=== PATIENT | female | born 1985 | race Hispanic/Latino ===

== ENCOUNTER 2017-04-14 19:55 | Emergency (ER) | payer SELFPAY ==
[2017-04-14] MEDS ORDERED: Dexamethasone 4 mg/ml Vial ONE (21:59)
== END 2017-04-14 22:08 | disposition home or self-care (01) ==
LOC: ERS 19:55
DX: J02.9 Acute pharyngitis, unspecified (principal); J45.909 Unspecified asthma, uncomplicated
CPT/HCPCS: 87081; 87430; 99283; J1100

== ENCOUNTER 2017-05-16 18:22 | Emergency (ER) | payer SELFPAY ==
[2017-05-16] MEDS ORDERED: Dexamethasone 10 MG/ML VIAL ONE (19:39)
== END 2017-05-16 20:03 | disposition home or self-care (01) ==
LOC: ERS 18:22
DX: J30.9 Allergic rhinitis, unspecified (principal)
CPT/HCPCS: 96372; J1100

== ENCOUNTER 2017-05-18 07:25 | Emergency (ER) | payer SELFPAY ==
[2017-05-18] MEDS ORDERED: Dexamethasone 4 MG TAB ONE (09:11)
== END 2017-05-18 09:22 | disposition home or self-care (01) ==
LOC: ERS 07:25
DX: J04.0 Acute laryngitis (principal); J20.9 Acute bronchitis, unspecified; J45.909 Unspecified asthma, uncomplicated; F43.10 Post-traumatic stress disorder, unspecified
CPT/HCPCS: 99282; J8540

== ENCOUNTER 2017-08-19 10:35 | Emergency (ER) | payer SELFPAY ==
[2017-08-19] MEDS ORDERED: Benzocaine 20% Spray 60 ML CAN ONE (11:45)
[2017-08-19] MEDS ORDERED: Lidocaine Viscous Sol 2% 15 ml UD Cup ONE (11:45)
[2017-08-19 12:21] LABS: BHCG - Serum Negative (NEGATIVE); Pregs Control Background? CLEAR/WHITE (CLR/WHITE); Pregs Control Bar Appear? YES (CONTROL BAR)
== END 2017-08-19 12:57 | disposition home or self-care (01) ==
LOC: ERS 10:35
DX: F41.9 Anxiety disorder, unspecified (principal); J45.909 Unspecified asthma, uncomplicated; F43.10 Post-traumatic stress disorder, unspecified; Z79.899 Other long term (current) drug therapy
CPT/HCPCS: 84703; 99283

== ENCOUNTER 2017-08-28 18:58 | Emergency (ER) | payer SELFPAY ==
[2017-08-28 19:44] LABS: BHCG - Serum Negative (NEGATIVE); Pregs Control Background? CLEAR/WHITE (CLR/WHITE); Pregs Control Bar Appear? YES (CONTROL BAR)
== END 2017-08-28 20:22 | disposition home or self-care (01) ==
LOC: ERS 18:58
DX: M62.838 Other muscle spasm (principal); J45.909 Unspecified asthma, uncomplicated; F43.10 Post-traumatic stress disorder, unspecified
CPT/HCPCS: 36415; 84703; 99283

== ENCOUNTER 2018-03-25 17:25 | Emergency (ER) | payer SELFPAY ==
[2018-03-25 18:35] LABS: #Basophils 0.1 thou/uL (0.0-0.2); #Eosinphils 0.3 thou/uL (0.0-0.7); #Lymphocytes 2.1 thou/uL (1.20-3.40); #Monocytes 0.5 thou/uL (0.11-0.59); #Neutrophils 4.9 thou/uL (1.40-6.50); %Basophils 0.7 % (0.0-1.0); %Eosinophils 3.5 % (0.0-10.0); %Lymphocytes 26.7 % (21.0-51.0); %Monocytes 6.6 % (0.0-10.0); %Neutrophils 62.5 % (42.0-75.0); Hemoglobin 14.2 g/dL (12.0-16.0); Mean Corpuscular HGB CONC 33.4 g/dL (32.0-36.0); Mean Corpuscular Hemoglobin 30.7 pg (27.0-31.0); Mean Corpuscular Volume 91.9 fL (78.0-98.0); Platelet Count 278 thou/uL (130-400); RBC Distribution Width 11.5 % (11.5-14.5); Red Blood Cell (RBC) Count 4.63 mill/uL (4.20-5.40); White Blood Cell (WBC) Count 7.8 thou/uL (4.8-10.8)
[2018-03-25 18:37] LABS: Pregnancy Test - Urine (BHCG) Negative (Negative); Pregu Control Background? CLEAR/WHITE (CLR/WHITE); Pregu Control Bar Appear? YES (CONTROL BAR); Specific Gravity 1.019 (1.002-1.036)
[2018-03-25 18:37] LABS: Bilirubin Negative (Negative); Blood, Urine Negative (Negative); Clarity CLOUDY (Clear); Glucose, Urine (Dipstick) Negative (Negative); Leukocyte Small (Negative); Nitrite Negative (Negative); Protein, Urine (Dipstick) Negative (Neg-Trace); Specific Gravity, Urine 1.019 (1.002-1.036); Urobilinogen 0.2 mg/dL (0.2-1.0)
[2018-03-25 18:40] LABS: Bacteria/HPF Rare-Few HPF (None Seen); Hyaline Casts/LPF 0-3 HYALINE CAST LPF (0-3 Hyaline); Pathc Cast-AUWi Flag 0.14 (0-2.49)
== END 2018-03-25 20:46 | disposition home or self-care (01) ==
LOC: ERS 17:25
DX: N93.9 Abnormal uterine and vaginal bleeding, unspecified (principal); J45.909 Unspecified asthma, uncomplicated; F43.10 Post-traumatic stress disorder, unspecified; E28.2 Polycystic ovarian syndrome
CPT/HCPCS: 36415; 81003; 81015; 81025; 84702; 85025; 99284

== ENCOUNTER 2018-05-10 13:41 | Emergency (ER) | payer SELFPAY ==
[2018-05-10] MEDS ORDERED: Ketorolac Tromethamine 30 MG/ML VIAL ONE (14:03)
== END 2018-05-10 14:09 | disposition home or self-care (01) ==
LOC: ERS 13:41
DX: K05.10 Chronic gingivitis, plaque induced (principal); F43.10 Post-traumatic stress disorder, unspecified; J45.909 Unspecified asthma, uncomplicated
CPT/HCPCS: 96372; J1885

== ENCOUNTER 2018-07-01 20:21 | Emergency (ER) | payer SELFPAY ==
[~2018-07-01 20:21] MED LIST: ISOVUE-370 76%-LOCM 1 ML ONE
[2018-07-01] MEDS ORDERED: Morphine 4 MG/ML VIAL ONE (21:49)
[2018-07-01] MEDS ORDERED: Famotidine/PF 20 mg/2ml Vial ONE (21:50)
[2018-07-01] MEDS ORDERED: Ondansetron PF 4 MG/2 ML Vial ONE (21:50)
[2018-07-01] MEDS ORDERED: diphenhydrAMINE 50 MG/ML VIAL ONE (21:50)
[2018-07-01] MEDS ORDERED: methylPREDNISolone Sod Succ/PF 125 MG/2 ML VIAL ONE (21:50)
[2018-07-01 22:07] LABS: #Basophils 0.1 thou/uL (0.0-0.2); #Eosinphils 0.5 thou/uL (0.0-0.7); #Lymphocytes 2.8 thou/uL (1.20-3.40); #Monocytes 0.5 thou/uL (0.11-0.59); #Neutrophils 4.3 thou/uL (1.40-6.50); %Basophils 0.9 % (0.0-1.0); %Eosinophils 6.5 % (0.0-10.0); %Lymphocytes 34.1 % (21.0-51.0); %Monocytes 6.3 % (0.0-10.0); %Neutrophils 52.3 % (42.0-75.0); Hemoglobin 13.5 g/dL (12.0-16.0); Mean Corpuscular HGB CONC 33.8 g/dL (32.0-36.0); Mean Corpuscular Hemoglobin 30.2 pg (27.0-31.0); Mean Corpuscular Volume 89.6 fL (78.0-98.0); Mean Platelet Volume 6.9 fL (7.4-10.4); Platelet Count 246 thou/uL (130-400); RBC Distribution Width 11.4 % (11.5-14.5); Red Blood Cell (RBC) Count 4.47 mill/uL (4.20-5.40); White Blood Cell (WBC) Count 8.1 thou/uL (4.8-10.8)
[2018-07-01 22:27] LABS: ALT (SGPT) 29 U/L (8-55); AST (SGOT) 21 U/L (5-34); Albumin 4.5 g/dL (3.5-5.0); Alkaline Phosphatase 77 U/L (40-150); Anion Gap 8 mmol/L (10-20); BUN (Urea Nitrogen) 17 mg/dL (7.0-18.7); Bilirubin, Total 0.5 mg/dL (0.2-1.2); Calc. Creatinine Clearance 0 mL/min (70-130); Calcium 9.6 mg/dL (7.8-10.44); Carbon Dioxide 30 mmol/L (22-29); Chloride 105 mmol/L (98-107); Estimated GFR-MDRD 69; Globulin 2.8 g/dL (2.4-3.5); Glucose 120 mg/dL (70-105); Potassium 3.4 mmol/L (3.5-5.1); Protein, Total 7.3 g/dL (6.0-8.3); Sodium 140 mmol/L (136-145)
[2018-07-01 22:38] LABS: BHCG - Serum Negative (NEGATIVE); Pregs Control Background? CLEAR/WHITE (CLR/WHITE); Pregs Control Bar Appear? YES (CONTROL BAR)
--- NOTE | 2018-07-01 23:19 | CT ---
Neck CT: 07/01/2018 COMPARISON: None HISTORY: Dental abscess, dental infection TECHNIQUE: Axial CT imaging at 2.5 mm intervals from skull base through lung apices with IV contrast. Coronal and sagittal reformatted imaging provided. FINDINGS: The imaged brain parenchyma is grossly unremarkable. The visualized lung apices are unremar kable. The visualized paranasal sinuses and mastoid air cells are well aerated. The retroantral fat and the parapharyngeal fat appears clear bilaterally. The parotid and submandibul ar glands appear within normal limits. The thyroid gland, cricoid cartilage, thyroid cartilage, hyoid bone, level of the glottis, epiglottis, preepiglottic fat, and tonsillar pillars appear unremar kable. Mildly prominent level 1 and level 2 lymph nodes are noted bilaterally. The second from the back right maxillary tooth demonstrates a prominent periapical abscess, best seen on sagittal image 34 and axial image 38. This is felt to represent the first right mandibular molar. There is no associated abscess or significant gingival inflammatory change in this region. No discrete additional periapical abscess is noted. No acute osseous abnormality is seen. IMPRESSION: Periapical abscess involving the right first mandibular molar.
== END 2018-07-02 02:11 | disposition home or self-care (01) ==
LOC: ERS 20:21
DX: K04.7 Periapical abscess without sinus (principal); F43.10 Post-traumatic stress disorder, unspecified
CPT/HCPCS: 70491; 80053; 84703; 85025; 96374; 96375; J1200; J2270; J2405; J2930; Q9966; S0028

== ENCOUNTER 2018-07-15 21:36 | Emergency (ER) | payer SELFPAY ==
[2018-07-15 22:36] LABS: #Basophils 0.1 thou/uL (0.0-0.2); #Eosinphils 0.8 thou/uL (0.0-0.7); #Lymphocytes 3.2 thou/uL (1.20-3.40); #Monocytes 0.6 thou/uL (0.11-0.59); #Neutrophils 5.9 thou/uL (1.40-6.50); %Basophils 0.6 % (0.0-1.0); %Eosinophils 7.6 % (0.0-10.0); %Lymphocytes 30.5 % (21.0-51.0); %Monocytes 5.6 % (0.0-10.0); %Neutrophils 55.7 % (42.0-75.0); Hemoglobin 13.6 g/dL (12.0-16.0); Mean Corpuscular HGB CONC 33.7 g/dL (32.0-36.0); Mean Corpuscular Hemoglobin 30.2 pg (27.0-31.0); Mean Corpuscular Volume 89.7 fL (78.0-98.0); Mean Platelet Volume 7.2 fL (7.4-10.4); Platelet Count 234 thou/uL (130-400); RBC Distribution Width 11.3 % (11.5-14.5); White Blood Cell (WBC) Count 10.6 thou/uL (4.8-10.8)
[2018-07-15 22:57] LABS: ALT (SGPT) 27 U/L (8-55); AST (SGOT) 18 U/L (5-34); Albumin 4.5 g/dL (3.5-5.0); Alkaline Phosphatase 65 U/L (40-150); Anion Gap 12 mmol/L (10-20); BUN (Urea Nitrogen) 10 mg/dL (7.0-18.7); Bilirubin, Total 0.4 mg/dL (0.2-1.2); Calc. Creatinine Clearance 0 mL/min (70-130); Calcium 9.4 mg/dL (7.8-10.44); Carbon Dioxide 22 mmol/L (22-29); Chloride 108 mmol/L (98-107); Estimated GFR-MDRD 76; Globulin 2.8 g/dL (2.4-3.5); Glucose 99 mg/dL (70-105); Potassium 3.6 mmol/L (3.5-5.1); Protein, Total 7.3 g/dL (6.0-8.3); Sodium 138 mmol/L (136-145)
== END 2018-07-15 23:30 | disposition home or self-care (01) ==
LOC: ERS 21:36
DX: K04.7 Periapical abscess without sinus (principal); J45.909 Unspecified asthma, uncomplicated; F43.10 Post-traumatic stress disorder, unspecified
CPT/HCPCS: 36415; 80053; 85025; 99283

== ENCOUNTER 2018-11-17 18:18 | Emergency (ER) | payer SELFPAY ==
[2018-11-17] MEDS ORDERED: Ibuprofen 200 MG TAB ONE (21:33)
--- NOTE | 2018-11-17 21:41 | CT ---
CT BRAIN NONCONTRAST: DATE: 11/17/2018 HISTORY: 33-year-old female status post acute blunt head trauma FINDINGS: There is no evidence of acute intra-axial or extra-axial hemorrhage. There is no midline shift or any other mass effect. There is no extra-axial fluid collection. There is no evidence of obstructive hydrocephalus. Calvarium is intact. IMPRESSION: No acute intracranial findings.
--- NOTE | 2018-11-17 21:44 | CT ---
CT CERVICAL SPINE NONCONTRAST: DATE: 11/17/2018 HISTORY: cervical trauma FINDINGS: There are no jumped or perched facets. There is no evidence of acute fracture. The vertebral body hei ghts are maintained. There is no prevertebral soft tissue swelling. Developmental nonfusion of anterior arch and posterior arch of the atlas (C1) ring. IMPRESSION: No evidence of acute fracture or acute traumatic subluxation.
== END 2018-11-17 22:01 | disposition home or self-care (01) ==
LOC: ERS 18:18
DX: S06.0X0A Concussion without loss of consciousness, initial encounter (principal); S60.512A Abrasion of left hand, initial encounter; S16.1XXA Strain of muscle, fascia and tendon at neck level, initial encounter; J45.909 Unspecified asthma, uncomplicated; F43.10 Post-traumatic stress disorder, unspecified; Y04.0XXA Assault by unarmed brawl or fight, initial encounter
CPT/HCPCS: 70450; 72125

== ENCOUNTER 2019-02-06 11:54 | Emergency (ER) | payer SELFPAY | END 2019-02-06 13:10 | disposition home or self-care (01) | LOC: ERS 11:54 | DX: H66.92 Otitis media, unspecified, left ear (principal); F43.10 Post-traumatic stress disorder, unspecified; J45.909 Unspecified asthma, uncomplicated | CPT/HCPCS: 99283 ==

== ENCOUNTER 2019-02-12 17:54 | Emergency (ER) | payer SELFPAY ==
[2019-02-12] MEDS ORDERED: Dexamethasone 10 MG/ML VIAL ONE (20:43)
== END 2019-02-12 21:34 | disposition home or self-care (01) ==
LOC: ERS 17:54
DX: H65.92 Unspecified nonsuppurative otitis media, left ear (principal); J02.9 Acute pharyngitis, unspecified; J45.909 Unspecified asthma, uncomplicated; E28.2 Polycystic ovarian syndrome; M79.7 Fibromyalgia; R53.82 Chronic fatigue, unspecified; F43.10 Post-traumatic stress disorder, unspecified
CPT/HCPCS: 99282; J1100

== ENCOUNTER 2019-12-24 09:38 | Emergency (ER) | payer SELFPAY ==
--- NOTE | 2019-12-24 11:34 | RAD ---
EXAM: Portable chest PROVIDED CLINICAL HISTORY: Cough COMPARISON: 06/20/2013 FINDINGS: Cardiac and mediastinal silhouette is within normal limits. No focal consolidation, pleural fluid or pneumothorax evident. IMPRESSION: No evidence for an acute cardiopulmonary process.
[2019-12-24 17:05] LABS: SARS-CoV-2 MS2 Positive; SARS-CoV-2 N Gene Negative; SARS-CoV-2 S Gene Negative; SARS-CoV-2 by NAA Not Detected (NotDetected); SARS-CoV-2 orf1ab Negative
== END 2019-12-24 12:30 | disposition home or self-care (01) ==
LOC: ERS 09:38
DX: J06.9 Acute upper respiratory infection, unspecified (principal); Z20.828 Contact with and (suspected) exposure to other viral communicable diseases; J45.909 Unspecified asthma, uncomplicated; F43.10 Post-traumatic stress disorder, unspecified; M79.7 Fibromyalgia; E28.2 Polycystic ovarian syndrome
CPT/HCPCS: 71045; 87081; 87430; 87635; 87804; U0003

== ENCOUNTER 2020-07-27 13:42 | Emergency (ER) | payer SELFPAY | END 2020-07-27 15:08 | disposition home or self-care (01) | LOC: ERS 13:42 | DX: M26.623 Arthralgia of bilateral temporomandibular joint (principal); K08.89 Other specified disorders of teeth and supporting structures; J45.909 Unspecified asthma, uncomplicated | CPT/HCPCS: 99283 ==

== ENCOUNTER 2021-10-06 09:28 | Emergency (ER) | payer SELFPAY ==
[2021-10-06 09:57] LABS: Bilirubin Negative (Negative); Blood, Urine 1+ (Negative); Clarity Turbid (Clear); Glucose, Urine (Dipstick) Normal (Negative); Ketone, Urine Trace mg/dL (Negative); Leukocyte 25 Leu/uL (Negative); Nitrite Negative (Negative); Protein, Urine (Dipstick) 10 mg/dL (Neg-Trace); Squamous Epithelial 0-3 HPF (0-3); Urobilinogen Normal mg/dL (Less than 2)
[2021-10-06 10:05] LABS: Bacteria/HPF 1+ HPF (None Seen); Calcium Oxalate Crystals 1+ HPF (None Seen)
[2021-10-06] MEDS ORDERED: Morphine 4 MG/ML VIAL ONE (10:06)
[2021-10-06] MEDS ORDERED: Ondansetron PF 4 MG/2 ML Vial ONE (10:06)
[2021-10-06 10:12] LABS: #Basophils 0.1 thou/uL (0.0-0.2); #Eosinphils 0.5 thou/uL (0.0-0.7); #Lymphocytes 1.9 thou/uL (1.20-3.40); #Monocytes 0.4 thou/uL (0.11-0.59); #Neutrophils 3.8 thou/uL (1.40-6.50); %Lymphocytes 28.3 % (21.0-51.0); %Monocytes 5.4 % (0.0-10.0); %Neutrophils 57.4 % (42.0-75.0); Hemoglobin 12.3 g/dL (12.0-16.0); Mean Corpuscular HGB CONC 34.1 g/dL (32.0-36.0); Mean Corpuscular Hemoglobin 31.3 pg (27.0-31.0); Mean Corpuscular Volume 91.7 fL (78.0-98.0); Mean Platelet Volume 6.6 fL (7.4-10.4); Platelet Count 268 thou/uL (130-400); RBC Distribution Width 11.8 % (11.5-14.5); Red Blood Cell (RBC) Count 3.93 mill/uL (4.20-5.40); White Blood Cell (WBC) Count 6.7 thou/uL (4.8-10.8)
[2021-10-06 10:38] LABS: ALT (SGPT) 12 U/L (8-55); AST (SGOT) 15 U/L (5-34); Albumin 3.9 g/dL (3.5-5.0); Alkaline Phosphatase 48 U/L (40-110); Anion Gap 11 mmol/L (10-20); BUN (Urea Nitrogen) 10 mg/dL (7.0-18.7); Bilirubin, Total 0.2 mg/dL (0.2-1.2); Calc. Creatinine Clearance 0 mL/min (70-130); Calcium 8.6 mg/dL (7.8-10.44); Carbon Dioxide 23 mmol/L (22-29); Chloride 109 mmol/L (98-107); Estimated GFR 96; Globulin 2.6 g/dL (2.4-3.5); Glucose 84 mg/dL (70-105); Lipase 20 U/L (8-78); Potassium 3.7 mmol/L (3.5-5.1); Protein, Total 6.5 g/dL (6.0-8.3); Sodium 139 mmol/L (136-145)
[2021-10-06 11:12] LABS: Pregnancy Test - Urine (BHCG) Negative (Negative); Pregu Control Background? CLEAR/WHITE (CLR/WHITE); Pregu Control Bar Appear? YES (CONTROL BAR)
[2021-10-06 11:28] LABS: BHCG - Serum Negative (NEGATIVE); Pregs Control Background? CLEAR/WHITE (CLR/WHITE); Pregs Control Bar Appear? YES (CONTROL BAR)
[2021-10-06] MEDS ORDERED: Ketorolac Tromethamine 30 MG/ML VIAL ONE (12:15)
== END 2021-10-06 12:22 | disposition home or self-care (01) ==
LOC: ERS 09:28
DX: N20.2 Calculus of kidney with calculus of ureter (principal)
CPT/HCPCS: 74176; 80053; 81003; 81015; 81025; 83690; 84703; 85025; 87086; 96374; 96375; J1885; J2270; J2405

== ENCOUNTER 2021-10-07 16:49 | Emergency (ER) | payer SELFPAY ==
[2021-10-07] MEDS ORDERED: Morphine 4 MG/ML VIAL ONE ×2 (17:41→19:11)
[2021-10-07] MEDS ORDERED: Ketorolac Tromethamine 30 MG/ML VIAL ONE (17:41)
[2021-10-07] MEDS ORDERED: Ondansetron PF 4 MG/2 ML Vial ONE ×2 (17:42→19:11)
[2021-10-07 18:05] LABS: #Basophils 0.1 thou/uL (0.0-0.2); #Eosinphils 0.6 thou/uL (0.0-0.7); #Lymphocytes 3.6 thou/uL (1.20-3.40); #Monocytes 0.5 thou/uL (0.11-0.59); #Neutrophils 3.4 thou/uL (1.40-6.50); %Basophils 0.7 % (0.0-1.0); %Eosinophils 7.4 % (0.0-10.0); %Lymphocytes 44.4 % (21.0-51.0); %Monocytes 5.8 % (0.0-10.0); %Neutrophils 41.7 % (42.0-75.0); Hemoglobin 11.6 g/dL (12.0-16.0); Mean Corpuscular Hemoglobin 31.3 pg (27.0-31.0); Mean Platelet Volume 6.7 fL (7.4-10.4); Platelet Count 253 thou/uL (130-400); RBC Distribution Width 11.9 % (11.5-14.5); White Blood Cell (WBC) Count 8.1 thou/uL (4.8-10.8)
[2021-10-07 18:08] LABS: Bacteria/HPF None Seen HPF (None Seen); Bilirubin Negative (Negative); Blood, Urine Trace (Negative); Clarity Clear (Clear); Glucose, Urine (Dipstick) Normal (Negative); Ketone, Urine Negative (Negative); Leukocyte Negative Leu/uL (Negative); Nitrite Negative (Negative); Protein, Urine (Dipstick) 10 mg/dL (Neg-Trace); Specific Gravity, Urine 1.021 (1.002-1.036); Squamous Epithelial 0-3 HPF (0-3); Urobilinogen Normal mg/dL (Less than 2); WBC/HPF 0-3 HPF (0-3)
[2021-10-07 18:10] LABS: BHCG - Serum Negative (NEGATIVE); Pregs Control Background? CLEAR/WHITE (CLR/WHITE); Pregs Control Bar Appear? YES (CONTROL BAR)
[2021-10-07 18:25] LABS: ALT (SGPT) 14 U/L (8-55); AST (SGOT) 15 U/L (5-34); Albumin 3.7 g/dL (3.5-5.0); Alkaline Phosphatase 53 U/L (40-110); Anion Gap 10 mmol/L (10-20); BUN (Urea Nitrogen) 6 mg/dL (7.0-18.7); Bilirubin, Total 0.2 mg/dL (0.2-1.2); Calc. Creatinine Clearance 0 mL/min (70-130); Calcium 8.5 mg/dL (7.8-10.44); Carbon Dioxide 24 mmol/L (22-29); Chloride 109 mmol/L (98-107); Estimated GFR 100; Globulin 2.5 g/dL (2.4-3.5); Glucose 97 mg/dL (70-105); Lipase 23 U/L (8-78); Potassium 3.9 mmol/L (3.5-5.1); Protein, Total 6.2 g/dL (6.0-8.3); Sodium 139 mmol/L (136-145)
== END 2021-10-07 20:52 | disposition home or self-care (01) ==
LOC: ERS 16:49
DX: N20.1 Calculus of ureter (principal)
CPT/HCPCS: 80053; 81003; 81015; 83690; 84703; 85025; 96361; 96374; 96375; 96376; J1885; J2270; J2405

== ENCOUNTER 2022-04-27 15:29 | Emergency (ER) | payer SELFPAY ==
[2022-04-27] MEDS ORDERED: HYDROcodone/Acetaminophen 5/325 mg Tablet ONE (16:12)
== END 2022-04-27 16:20 | disposition home or self-care (01) ==
LOC: ERS 15:29
DX: K04.7 Periapical abscess without sinus (principal)
CPT/HCPCS: 99282